=== PATIENT | male | born 1970 | race Caucasian/White ===

== ENCOUNTER 2022-03-02 16:35 | Emergency (ER) | payer OTHER ==
[2022-03-02 17:54] VITALS: BP 159/84; PULSE 87; TEMP 98
--- NOTE | 2022-03-02 18:54 | XR ---
EXAMINATION TYPE: XR foot complete RT DATE OF EXAM: 03/02/2022 COMPARISON: NONE HISTORY: Pain TECHNIQUE: 3 views FINDINGS: Metatarsals are intact. The toes are intact. I see no fracture nor dislocation. There is Ac hilles calcaneal spurring. There are no erosions. IMPRESSION: Mild calcaneal spurring. No fracture seen.
[2022-03-02 21:08] VITALS: RESP 16
--- NOTE | 2022-03-02 21:51 | ED ---
Lower Extremity Injury HPI - General Chief Complaint: Extremity Injury, Lower Stated Complaint: R foot/200 pounds dropped on foot Time Seen by Provider: 03/02/22 20:56 Source: patient, RN notes reviewed Mode of arrival: ambulatory Limitations: no limitations - History of Present Illness Initial Comments: This is a 51-year-old male who presents to the emergency department for a right foot injury. Patient states that yesterday while he was at work, he dropped 200 pounds worth of metal on his right foot. States that he was not in a significant amount of pain following the event. He is able to ambulate without much of any pain, however he states that he is putting most of the pressure on the outside of his right foot, as most of the pain is around the right toe. Notes that this morning, he noticed swelling to the top of the right foot as well as bruising around the toes, which concerned him. However, the pain has not increased. He notes that he has diabetic neuropathy, which he believes is why he is not in much pain. He does not request any pain medication in the emergency department. He does need a urine drug screen and breathalyzer test as a requirement for his job. Denies any fevers, chills, sore throat, cough, dyspnea, chest pain, palpitations, abdominal pain, nausea, vomiting, diarrhea, back pain, or headaches. MD Complaint: foot injury Onset/Timin -: days(s) Injury: Foot: Right Place: work - Related Data Allergies Allergy/AdvReac Type Severity Reaction Status Date / Time No Known Allergies Allergy Verified 03/02/22 17:54 Review of Systems ROS Statement: Those systems with pertinent positive or pertinent negative responses have been documented in the HPI. ROS Other: All systems not noted in ROS Statement are negative. Past Medical History Past Medical History: Dialysis History of Any Multi-Drug Resistant Organisms: None Reported Past Surgical History: Appendectomy Past Psychological History: No Psychological Hx Reported Smoking Status: Never smoker Past Alcohol Use History: None Reported Past Drug Use History: None Reported General Exam Limitations: no limitations General appearance: alert, in no apparent distress Head exam: Present: atraumatic, normocephalic, normal inspection Respiratory exam: Present: normal lung sounds bilaterally. Absent: respiratory distress, wheezes, rales, rhonchi, stridor Cardiovascular Exam: Present: regular rate, normal rhythm, normal heart sounds. Absent: systolic murmur, diastolic murmur, rubs, gallop, clicks Extremities exam: Present: other (Mild swelling to the dorsal aspect of the right foot with ecchymosis at the base of toes 2 through 4. Patient is nontender to palpation with full range of motion of all 5 toes and the ankle. 2+ dorsalis pedis and tibialis posterior pulses and capillary refill less than 2 seconds.) Neurological exam: Present: alert, oriented X3, CN II-XII intact Psychiatric exam: Present: normal affect, normal mood Skin exam: Present: other (Ecchymosis at the base of toes 2 through 4 on the right.) Course Vital Signs 03/02/22 03/02/22 17:51 21:03 Temperature 98 F Pulse Rate 87 Respiratory 18 16 Rate Blood Pressure 159/84 O2 Sat by Pulse 96 100 Oximetry Medical Decision Making - Medical Decision Making This is a 51-year-old male who presents to the emergency department for a right foot injury. X-ray reveals no acute abnormalities. This will be a worker's comp issue. UDS and breathalyzer obtained as required from the patient's employer. Results will be sent directly to the patient's employer when they return. Advised that the bruising will likely continue to spread, and this is not of concern. If needed, he can take Tylenol and ibuprofen for pain relief. Advised to avoid putting too much pressure on the outside of the foot, as it can cause additional injury. Return precautions reviewed in depth, the patient is instructed to return to the emergency department with any new, worsening, or concerning symptoms. Patient verbalized understanding. This case was discussed in detail with the attending ED physician. Presentation, findings, and treatment plan discussed in detail as well. - Radiology Data Radiology results: report reviewed, image reviewed Disposition Clinical Impression: Right foot injury Disposition: HOME SELF-CARE Instructions (If sedation given, give patient instructions): Foot Sprain (ED) Additional Instructions: Return to the emergency department with any new, worsening, or concerning symptoms. The bruising will likely continue to progress and spread across the foot. This is not of concern and will continue to improve on its own. Urine drug screen and breathalyzer results will be sent to your employer. Is patient prescribed a controlled substance at d/c from ED?: No Referrals: Ced Fofana MD [Primary Care Provider] - 1-2 days
== END 2022-03-02 22:34 | disposition home or self-care (01) ==
LOC: EC 16:35
DX: S99.921A Unspecified injury of right foot, initial encounter (principal); W26.8XXA Contact with other sharp object(s), not elsewhere classified, initial encounter; Y99.0 Civilian activity done for income or pay
CPT/HCPCS: 82075

== ENCOUNTER → 2022-03-08 | Outpatient (CLI) | payer OTHER ==
--- NOTE | 2022-03-08 09:52 | XR ---
EXAMINATION TYPE: XR foot complete RT DATE OF EXAM: 03/08/2022 CLINICAL HISTORY: Bruising and pain after recent injury. TECHNIQUE: Frontal, lateral, and oblique images of the right foot are obtained. COMPARISON: Prior right foot x-ray March 02, 2022 FINDINGS: There is no acute fracture/dislocation evident in the right foot. The joint spaces in the right foot appear within normal limits. Redemonstration of spurring at distal Achilles tendon attach ment posterior superior calcaneus along with unfused apophysis lateral base of the cuboid bone. Focal soft tissue swelling over the fourth toe redemonstrated. Mild spurring base of first metatarsal head redemonstrated. IMPRESSION: There is no acute fracture or dislocation in the right foot. No significant change from prior
== END | disposition home or self-care (01) ==
LOC: RADXRMAIN 09:22
PROVIDERS: ATTEND Emergency Medicine
DX: S90.31XA Contusion of right foot, initial encounter (principal); M79.671 Pain in right foot